=== PATIENT | male | born 1960 | race Caucasian/White ===

== ENCOUNTER 2020-09-08 09:18 | Emergency (ER) | payer OTHER ==
--- OUTSIDE RECORDS SUMMARY | 2020-09-08 09:22 | XMS REPORT | Continuity of Care Document ---
:1960 Author Organization [facility] t Address [address] [place] [address] Care Team Providers Name Role Phone Adamaris Keith MD Primary Care Physician Rohit Watson MD Attending Clinician Gilberto CASH Attending Clinician Unavailable Adamaris Keith MD Attending Clinician Rosa Maria Macias Attending Clinician Unavailable Kristi CASH Attending Clinician Unavailable Aldo BLOOM Attending Clinician Unavailable Mi Landin MD Attending Clinician Vaughn CASH Attending Clinician Unavailable Alayna CAMP, SPaolo Attending Clinician Driss CASH Attending Clinician Unavailable Brayan Jacob MD Attending Clinician Bruna BLOOM Attending Clinician Unavailable Vidhi Landin MD Attending Clinician Jovon López MD Attending Clinician MD Mi LANDIN Attending Clinician Unavailable John CASH Attending Clinician Unavailable Chance BLOOM Attending Clinician Unavailable Rachelle Dalal MD Attending Clinician Anthony Attending Clinician Unavailable Baldev CAMP, Lio Flanagan Attending Clinician [phone] Berta Tobin MD Attending Clinician [phone] Fartun Frances Attending Clinician MD ROHIT WATSON Attending Clinician Unavailable MUSHTAQ Admitting Clinician Unavailable MD Mi LANDIN Admitting Clinician Unavailable RENE Admitting Clinician Unavailable MD ROHIT WATSON Admitting Clinician Unavailable Payers Payer Name Policy Type Policy Effective Date Expiration Date Crystal ce Number NILESH [id number] 2019 [place] [facility]IC[facility] [facility] 00:[place]:00 Method ist GOLD PLUS [id number] /2020-PresentHMO Problems Condition Condition Condition Status Onset Resolution Last Treating Co mments Source Name Details Category Date Date Treatment Clinician Date Arthritis Arthritis Disease Active Overview: Solo of right of right 04-25 Formattin [facility] ankle ankle 00:00: g of this st note might be different from the original. Added automatic ally from request for surgery [id number] Pain, Pain, Disease Active [place] joint, joint, 03-21 Methodi ankle, ankle, 00:00: st right right 00 Hyperlipid Hyperlipid Disease Active [place] emia emia 03-21 Methodi 00:00: st 00 Essential Essential Disease Active Lyndon ston (primary) (primary) 03-21 Meth abelino hypertensi hypertensi 00:00: st on on 00 Anxiety Anxiety Disease Active [place] 03-21 Methodi 00:00: st 00 Chronic Chronic Disease Active [place] pain pain 03-21 Methodi disorder disorder 00:00: st 00 Atrial Atrial Disease Active 2019-02 Overview: [place] flutter flutter 2-04 Formattin Metho di 00:00: g of this st note might be different from the original. Added automatic ally from request for surgery [id number] History of History of Problem Active [facility] fracture fracture [facility] of right of right Memori a ankle ankle l Outpati ent Clinics High High Problem Active [facility] cholestero cholestero Hayde kes - l l [facility] Outpat[facility] ent Clinics Hyperlipid Hyperlipid Problem Active [facility] emia, emia, [facility] - unspecifie unspecifie Me moria d d l hyperlipid hyperlipid Ou tpati emia type emia type ent Clinics Anxiety Anxiety Problem Active [facility] Erectile Erectile Problem Active [facility] dysfunctio dysfunctio Hayde kes - n n Memoria l Outpati ent [facility] Chronic Chronic Problem Active [facility] pain pain [facility] - syndrome syndrome [facility] a [facility] HTN HTN Problem Active [facility] (hypertens (hypertens Hayde kes - ion) ion) [facility] Memory Memory Problem Active [facility] problem problem [facility] - Memoria [facility] Obesity Obesity Problem Active [facility] (BMI (BMI [facility]ukes - 30.0-34.9) 30.0-34.9) Me moria l [facility] ent Clinics Swelling Swelling Diagnosis Active [facility] of right of right [facility] - ankle ankle Memoria joint joint l [facility] Varicose Varicose Problem Active [facility] veins of veins of [facility] - both lower both lower Me moria extremitie extremitie l s, s, Outpati unspecifie unspecifie en t d whether d whether Clin ics complicate complicate d d Depression Depression Problem Active [facility] screening screening Luke s - Memoria [facility] Other Other Diagnosis Active [facility] Pain in Pain in Diagnosis Active [facility] right right [facility] - ankle and ankle and Brandon jayjay joints of joints of l right foot right foot Ou tpati ent Clinics Allergies, Adverse Reactions, Alerts This patient has no known allergies or adverse reactions. Family History Family Member Diagnosis Comments Start Date Stop Date Source Natural father Cancer [facility] thodist Natural mother No Known Problems Lyndon Herrmann Natural sister No Known Problems Lyndon Herrmann Social History Social Habit Start Date Stop Date Quantity Comments Source History of tobacco 2019-11-29 Light tobacco Lyndonmaye ritchie Confucianist use 00:00:00 smoker Cigarettes smoked 2020-04-25 2020-04-25 Edil Confucianist current (pack per 00:00:00 00:00:00 day) - Reported Cigarette 2020-04-25 2020-04-25 Solo Method ist pack-years 00:00:00 00:00:00 Tobacco use and 2020-04-25 2020-04-25 Never used Edil Malave ethodist exposure 00:00:00 00:00:00 Alcohol intake 2020-04-25 2020-04-25 Current drinker [place] [facility] 00:00:00 00:00:00 of alcohol (finding) History SDOH 2020-04-042020-04-04 5 [place] Meth odist Alcohol Frequency 00:00:00 00:00:00 History SDOH 2020-04-04 2020-04-04 3 [place] Meth odist Alcohol Std Drinks 00:00:00 00:00:00 History SDOH 2020-04-04 2020-04-04 5 [place] Meth odist Alcohol Binge 00:00:00 00:00:00 Alcohol Comment 2020-03-10 2020-03-10 6 pack per day [place] [facility] 00:00:00 00:00:00 Sex Ass[birth year] At [birth year] [place] Ananda ethodist 00:00:00 00:00:00 Smoking Status Start Date Stop Date Source Light tobacco smoker 2020-04-25 00:00:00 [place] [facility] Medications Ordered Filled Start Stop Current Ordering Indication Dosage Frequency Signature Comments Components Source Medication Medication Date Date Medication? Clinician (SIG) Name Name potassium Yes TAKE 1 [place] chloride 5-12 TABLET(10 Method i (KLOR-CON) 00:00: MEQ) BY st 10 MEQ CR 00 MOUTH tablet DAILY furosemide Yes TAKE 1 [place] (LASIX) 20 5-12 TABLET(20 Meth abelino mg tablet 00:00: MG) BY st 00 MOUTH DAILY lisinopriL Yes 20mg Q.5D Take 1 [place] (PRINIVIL) 4-19 tablet (20 Met hodi 20 mg 00:00: mg total) st tablet 00 by mouth 2 (two) times a day. metoprolol 2021- Yes 50mg QD Take 1 [place] succinate 4-19 04-19 tablet (50 Met hodi XL (Toprol 00:00: 23:59 mg total) s t XL) 50 mg 00 :00 by mouth 24 hr daily. tablet therapeutic Yes 1{tbl} QD Take 1 [place] multivitami 2-19 tablet by Met hodi n 09:30: mouth st (THERAGRAN) 11 daily. tablet apixaban Yes 5mg Q.5D Take 1 Solo (Eliquis) 5 2-08 tablet (5 Met hodi mg tablet 00:00: mg total) st 00 by mouth 2 (two) times a day. rosuvastati No 20mg QD Take 1 Lyndon ston n (CRESTOR) 2- 02-06 tablet (20 M ethodi 20 mg 00:00: 23:59 mg total) st tablet 00 :00 by mouth daily. furosemide 2020- No TAKE 1 [place] (LASIX) 20 2-07 02-12 TABLET(20 Met hodi mg tablet 00:00: 00:00 MG) BY st 00 :00 MOUTH DAILY potassium 2020- No TAKE 1 [place] chloride 04-04-12 TABLET(10 Metho di (KLOR-CON) 00:00: 00:00 MEQ) BY st 10 MEQ CR 00 :00 MOUTH tablet DAILY lisinopriL No 20mg QD Take 1 [place] (PRINIVIL) 2 04-19 tablet (20 Me thodi 20 mg 00:00: 00:00 mg total) st tablet 00 :00 by mouth daily. furosemide No 20mg QD Take 1 [place] (LASIX) 20 04-04-05 tablet (20 Me thodi mg tablet 00:00: 00:00 mg total) st 00 :00 by mouth daily. potassium 10meq QD Take 1 [place] chloride 04-04-05 tablet (10 Meth abelino (KLOR-CON) 00:00: 00:00 mEq total) st 10 MEQ CR 00 :00 by mouth tablet daily. furosemide No 40mg QD Take 1 [place] (Lasix) 40 03-21- tablet (40 Me thodi mg tablet 00:00: 23:59 mg total) st 00 :00 by mouth daily for 3 days. Hold if swelling gone. Expect increased urination. HYDROcodone 2020- No chronic 1{tbl} Q6H Take 1-2 Solo -acetaminop 1-14 -22 pain tablets by M huber hen ([place]) 00:00: 23:[address] 10-325 mg 00 :00 every 6 per tablet (six) hours for 8 days .chronic pain. Max Daily Amount: 8 tablets aspirin 325 2020- No 325mg QD Take 325 Solo MG tablet 03-06-07 mg by Methodi 16:33: 00:[address] 22 :00 daily. atorvastati 2019-02 No 20mg QD Take 20 mg Solo n (LIPITOR) 04-20-21 by mouth Met hodi 20 mg 16:30: 00:[address] tablet 09 :00 Default OP ins atorvastati 2019-02 No 20mg QD Take 1 Lyndon ston n (LIPITOR) 04-20- tablet (20 M ethodi 20 mg 00:00: 00:00 mg total) st tablet 00 :00 by mouth daily for 180 doses. Default OP ins aspirin 325 2019-02 No 325mg QD Take 1 [place] MG tablet 04-06 tablet Methodi 14:14: 00:00 ([address] 49 :00 total) by mouth daily. apixaban 2019-02 No 5mg Q.5D Take 1 [place] (Eliquis) 5 04-06-25 tablet (5 Me thodi mg tablet 00:00: 00:00 mg total) st 00 :00 by mouth 2 (two) times a day. lisinopriL 2019-02 No 10mg QD Take 1 [place] (PRINIVIL) 04-03 02-05 tablet (10 Me thodi 10 mg 00:00: 00:00 mg total) st tablet 00 :00 by mouth daily. metoprolol 2019-02 No 50mg Q.5D Take 50 mg Solo tartrate 03-1718 by mouth 2 Meth abelino (LOPRESSOR) 14:38: 00:00 (two) st 50 mg 28 :00 times a tablet day. metoprolol 2019-02 No 50mg Q.5D Take 1 [place] tartrate 03-17 04-19 tablet (50 Meth abelino (LOPRESSOR) 00:00: 00:00 mg total) st 50 mg 00 :00 by mouth 2 tablet (two) times a day. Gabapentin Gabapentin Yes Jody [address] 2-05 [place] (take with Luke s - 00:00: gabapentin Memoria 00 800 mg) l Outpati ent Clinics IBU IBU Yes Jody TAKE [address] [facility] [facility] Millender TABLET BY [facility] - MOUTH 3 Memoria TIMES A l DAY (AFTER Outpati MEALS) ent NEEDED FOR Clinics PAIN Gabapentin Gabapentin Yes Jody [address] [facility] [address] Millender (take with Luke s - gabapentin Memoria 100 mg) l [facility] Lisinopril Lisinopril Yes Jody [address] [facility] [address] Millender [facility] Metoprolol Metoprolol Yes Jody [address] Succinate Succinate Millender [facility] atorvastati atorvastati No Jody [address] n n 12-29 [place] in evening Kayla es - 00:00 Memoria :00 l [facility]ics Immunizations Ordered Immunization Filled Immunization Date Status Commen ts Source Name Name CARLY PEREA PF 2020-01-10 [facility] 00:00:00 Confucianist Vital Signs Vital Name Observation Time Observation Value Comments Source Body height 2020-04-18 09:31:00 182.9 cm [place] [facility] Body weight 2020-04-18 09:31:00 115.667 kg [place] [facility] BMI 2020-04-18 09:31:00 34.58 kg/m2 [place] [facility] Heart rate 2020-04-04 14:58:00 92 /min [place] [facility] Oxygen saturation in 2020-04-04 14:58:00 99 /min [place] [facility] Arterial blood by Pulse oximetry Systolic blood 2020-04-04 14:09:00 140 mm[Hg] [place] n Confucianist pressure Diastolic blood 2020-04-04 14:09:00 95 mm[Hg] [place] Confucianist pressure Body temperature 2020-04-04 14:09:00 36.44 Sharmin [place] [facility] Respiratory rate 2020-03-21 12:45:00 16 /min [place] [facility] Procedures Procedure Date / Time Performing Clinician Source Performed US DUPLEX VENOUS LOWER 2020-04-21 10:45:00 Indu Keith on Confucianist EXTREMITY BILATERAL Adamaris COMPREHENSIVE METABOLIC 2020-04-21 09:45:00 Ananda Watson Confucianist PANEL ESTIMATED GFR 2020-04-21 09:45:00 Ananda Watson COMPREHENSIVE METABOLIC 2020-04-04 15:36:00 Ananda Watson Confucianist PANEL B NATRIURETIC PEPTIDE 2020-04-04 15:36:00 Ananda Watson on Confucianist SURGICAL PATHOLOGY REQUEST 2020-03-21 09:36:00 Umesh Landin MA AN ELECTIVE 2020-03-21 09:06:37 Ulises Etienne Me thodist ENDOTRACHEAL AIRWAY OR FL < 1 HOUR 2020-03-21 08:47:45 Umesh Landin ethodist LAMINECTOMY, LUMBAR 2020-03-21 08:20:00 Umesh Landin on Confucianist COVID-19 QUALITATIVE 2020-03-18 15:59:00 Umesh Landin Confucianist RT-PCR COVID-19 QUALITATIVE 2020-03-11 12:02:00 Umesh Landin Confucianist RT-PCR PARTIAL THROMBOPLASTIN 2020-03-11 12:02:00 Kellen Mike TIME (PTT) PROTHROMBIN TIME WITH INR 2020-03-11 12:02:00 Kellen Mike COMPREHENSIVE METABOLIC 2020-03-11 12:02:00 Kellen Mike PANEL CBC WITH PLATELET AND 2020-03-11 12:02:00 Kellen Mike DIFFERENTIAL ESTIMATED GFR 2020-03-11 12:02:00 Kellen Mike ethodist MANUAL DIFFERENTIAL 2020-03-11 12:02:00 Kellen Mikeist CV STRESS TEST NUCLEAR 2020-03-03 11:18:58 Ananda Watson CARDIO NM MYOCARDIAL PERFUSION 2020-03-03 11:18:58 Ananda Watson STRESS REST 1 DAY XR ANKLE 3+ VW RIGHT 2020-02-12 13:41:40 Indu Keitha ECG 12-LEAD 2020-02-06 16:19:31 Phillip López odjane Sigala EP ABLATION FLUTTER 2020-02-06 15:30:00 Phillip López TTE COMPLETE, W CONTRAST, 2020-02-06 11:00:00 Jennie Antunez W DOPPLER ([id number]) TYPE AND SCREEN 2020-02-06 07:30:00 Phillip López Meth odist Jovon BASIC METABOLIC PANEL 2020-02-06 03:20:00 Phillip López Confucianist Jovon ESTIMATED GFR 2020-02-06 03:20:00 Phillip López Meth odist Jovon HC COMPLETE BLD COUNT 2020-02-06 03:00:00 Phillip López Confucianist W/AUTO DIFF Jovon PROTHROMBIN TIME WITH INR 2020-02-06 03:00:00 Phillip López [place] Confucianist Jovon ECG PRE/POST OP 2020-02-06 02:42:28 Phillip López odist Jovon ECHOCARDIOGRAM 2020-02-05 15:22:22 Phillip López odist TRANSESOPHAGEAL W DOPPLER Jovon COLORFLOW ECG PRE/POST OP 2020-02-05 08:16:37 Ananda Watson Met hodist COVID-19 QUALITATIVE 2020-02-01 16:46:00 Ananda Watson Confucianist RT-PCR COMPREHENSIVE METABOLIC 2020-02-01 16:46:00 Ananda Watson Confucianist PANEL PROTHROMBIN TIME WITH INR 2020-02-01 16:46:00 Ananda Watson Confucianist PARTIAL THROMBOPLASTIN 2020-02-01 16:46:00 Ananda Watson Confucianist TIME (PTT) HC COMPLETE BLD COUNT 2020-02-01 16:46:00 Ananda Watson on Confucianist W/AUTO DIFF ESTIMATED GFR 2020-02-01 16:46:00 Ananda Watson Met hodist ECG 12-LEAD 2020-02-01 15:33:50 Ananda Watson Met hodist ECG 12-LEAD 2020-01-10 12:26:58 Indu Keith Meth odist Adamaris CBC WITH PLATELET AND 2020-01-10 12:16:00 Indu Keith Confucianist DIFFERENTIAL Adamaris HEMOGLOBIN A1C 2020-01-10 12:16:00 Indu Keith Meth odist Adamaris COMPREHENSIVE METABOLIC 2020-01-10 12:16:00 Indu Keith Mally oquendo Confucianist PANEL Adamaris LIPID PANEL 2020-01-10 12:16:00 Indu Keith Meth odist Adamaris LDH 2020-01-10 12:16:00 Indu Keith Meth odjane [place] PROTHROMBIN TIME WITH INR 2020-01-10 12:16:00 Indu Keith Confucianist Adamaris MRI LUMBAR SPINE WO 2020-01-02 10:53:14 Umesh Landin on Confucianist CONTRAST MRI THORACIC SPINE WO 2020-01-02 10:41:21 Umesh Landin Confucianist CONTRAST MRI CERVICAL SPINE WO 2020-01-02 10:29:42 Umesh Landin Confucianist CONTRAST Plan of Care Planned Activity Planned Date Details Comments Source Future Scheduled Test 2020-09-28 INFLUENZA VACCINE [facility] Confucianist 00:00:00 [code = INFLUENZA VACCINE] Future Scheduled Test [facility] S[facility]ENING [code = COLONOSCOPY SCREENING] Future Scheduled Test 2011 SHINGLES VACCINES [facility]ucianist 00:00:00 (#1) [code = SHINGLES VACCINES (#1)] Future Scheduled Test 1979 Hepatitis C [place] n Confucianist 00:00:00 screening (procedure) [code = 190609263] Future Scheduled Test 1973 COVID-19 VACCINE (1) [place] [facility] 00:00:00 [code = COVID-19 VACCINE (1)] Future Appointment 2020-09-23 Opal Boyd MD on Confucianist 07:30:[address] [place] [address]; [address] [address] Future Appointment 2020-09-23 Opal Boyd MD on Confucianist 07:30:[address] [place] [address]; [place] [id number] Encounters Start End Encounter Admission Attending Care Care Encounter Source Date/Time Date/Time Type Type Clinicians Facility Department ID 2020-07-02 2020-07-02 Outpatient Ananda WATSON [facility] [id number] [place] 00:00:00 00:00:[address] 2020-04-21 2020-04-21 Outpatient Ananda WATSON [facility] [id number] [place] 00:00:00 00:00:[address] 2020-04-21 2020-04-21 Outpatient YOLI, [facility] [id number] [place] 00:00:00 00:00:00 INDU [address] 2020-04-18 2020-04-18 Outpatient Ananda WATSON [facility] [id number] [place] 00:00:00 00:00:[address] 2020-04-04 2020-04-04 Outpatient Ananda WATSON [facility] [id number] [place] 00:00:00 00:00:[address] 2020-04-04 2020-04-04 Outpatient YLOI, [facility] [id number] [place] 00:00:00 00:00:00 INDU [address] 2020-04-04 2020-04-04 Outpatient Ananda WATSON [facility] [id number] [place] 00:00:00 00:00:[address] 2020-04-03 2020-04-03 Outpatient MUSHTAQ, [facility] [id number] [place] 00:00:00 00:00:00 UMESH [address] 2020-04-02 2020-04-02 Outpatient RANDALO, [facility] [id number] [place] 00:00:00 00:00:00 EDELMIRA [address] 2020-03-21 2020-03-21 Outpatient NANCIER, [facility] [id number] [place] 00:00:00 00:00:00 UMESH [address] 2020-03-11 2020-03-19 Outpatient SCHURMANN, [facility] [id number] [place] 00:00:00 00:00:00 PHILLIP [address] 2020-03-18 2020-03-18 Outpatient WEINER, [facility] [id number] [place] 00:00:00 00:00:00 UMESH [address] 2020-03-11 2020-03-11 Outpatient WEINER, [facility] [id number] [place] 00:00:00 00:00:00 UMESH [address] 2020-03-07 2020-03-07 Outpatient Ananda WATSON [facility] [id number] [place] 00:00:00 00:00:[address] 2020-03-03 2020-03-03 Outpatient Ananda WATSON [facility] [id number] [place] 00:00:00 00:00:[address] 2020-02-12 2020-02-12 Outpatient YOLI, [facility] [id number] [place] 00:00:00 00:00:00 INDU [address] 2020-02-08 2020-02-08 Outpatient YOLI, [facility] [id number] [place] 00:00:00 00:00:00 INDU [address] 2020-02-05 2020-02-06 Outpatient SCHADALGISA, [facility] [id number] [place] 00:00:00 00:00:00 PHILLIP [address] 2020-02-01 2020-02-01 Outpatient YOLI, [facility] [id number] [place] 00:00:00 00:00:00 INDU [address] 2020-02-01 2020-02-01 Outpatient Ananda WATSON [facility] [id number] [place] 00:00:00 00:00:[address] 2020-01-10 2020-01-10 Outpatient YOLI, [facility] [id number] [place] 00:00:00 00:00:00 INDU [address] 2020-01-08 2020-01-08 Outpatient WEINER, [facility] [id number] [place] 00:00:00 00:00:00 UMESH [address] 2020-01-02 2020-01-02 Outpatient WEINER, [facility] [id number] [place] 00:00:00 00:00:00 UMESH [address] 2020-01-02 2020-01-02 Outpatient WEINER, [facility] [id number] [place] 00:00:00 00:00:00 UMESH [address] 2020-01-02 2020-01-02 Outpatient WEINER, [facility] [id number] [place] 00:00:00 00:00:00 UMESH [address] 2019-12-11 2019-12-11 Outpatient WEINER, [facility] [id number] [place] 00:00:00 00:00:00 UMESH [address] 2019-09-25 2019-09-25 [facility] [id number] 14:24:00 14:24:00 [facility] 2019-09-14 2019-09-14 [facility] [id number] 16:40:00 16:40:00 [facility] 2019-07-05 2019-07-05 [facility] [id number] 09:40:00 09:40:00 [facility] 2019-06-30 2019-06-30 Emergency [facility] [id number] 10:46:40 11:09:00 [place] [id number] [place] [id number] [place] [id number] 2019-05-24 2019-05-24 [facility] [id number] 14:19:00 14:19:00 [facility] 2019-05-21 2019-05-21 [facility] [id number] 16:33:00 16:33:00 [facility] 2019-04-03 2019-04-03 [facility] [id number] 15:15:00 15:15:00 [facility] Results Test Test Test Results Result Source Description Time Comments Comments Us duplex 2020-03- Interface, Radiology [place] venous lower 22 Results In - 04/21/2020 Confucianist extremity 17:04:00 5:06 PM CST Vascular Ultrasound Laboratory Lower Extremity Venous Report [address] [address], [place] [address] Pat.Name: REBECCA JOHNS Pat.ID: [id number] St.Date: 04/21/2020 Refer.MD: INDU KEITH MD Exam Time: 10:17:00 AM Study Type:LE Venous Age: 13 1960,60Y Sex: MALE Sonogrphr: Akiko Daley RVT Pat. Stat.:Outpatient Room: [facility] 16 Tape Vol: RF, CPT - 4: 18771 Echo Event ID:[id number] Order ID: [id number] Reason for Study:Bilateral leg swelling.Procedures: Colorflow, Grayscale/2D, Power Doppler ImagingRace: C SUMMARY:------ -----Deep Veins Superficial Veins* Normal Reflux Criteria: < 1 second * Normal RefluxCriteria: < 0.5 seconds * Abnormal Reflux Criteria: > or equal to 1 second * Abnormal RefluxCriteria: > or equal to 0.5 seconds DUPLEX SCAN OBSERVATIONS Deep Veins Superficial Veins Right Left Right Left GSV (prox) Normal NormalCFV Normal Normal (above knee)Femoral Normal Normal GSV (dist) Normal NormalProfunda Normal Normal (below knee)Popliteal Normal NormalPT (prox) Normal Normal SSV Normal NormalPT (dist) Normal Normal Peroneal Normal Normal Gastrocs Normal NormalRIGHT: There is normal compressibility with no evidence of echogenic materialnoted within the lumen of the visualized veins.Colorflow and Dopplersignals are normal. LEFT:There is normal compressibility with no evidence of echogenicmaterial noted within the lumen of the visualized veins. Colorflow andDoppler signals are normal. PRELIMINARY FINDINGS:1. Normal venous duplex exam of the visualized veins. PHYSICIAN INTERPRETATION: Venous examination of the both lower extremities demonstrated noevidence of venous thrombosis in the visualized veins. Normalcompressibility and augmentation of all veins visualized. FIN DINGS: Signed 04/21/2020 05:04 Saranya Koch MD, RPVI B natriuretic peptide 2020-04-05 17:47:00 Test Item Value Reference Range Interpretation Comme nts BNP (test code = 41 pg/mL <100 BNP levels increase with age 86104-1) in the generalp opulation with the highest martin ues seen inindividuals g reater than 75 years of age.Re ference: J. Am. Michelle. Cardiol. 2002; 40:976-982. RAC (test code = RAC) Performing Organization Information: Site ID: [facility] Name: [facility] Address: [address] [place] [id number] Director: Cali BarrosistOR [place] < 1 [id number] 11:04:35Hm Interface, Radiology Results Incoming - 04/02/2020 11:07 AM CSTFormatting of this note might be di fferent from the original.EXAMINATION: OR [place] < 1 HOURC-arm fluoroscopy was requested in OR. Location: [facility]19 - OR 10 Procedure: DECOMPRESSION L3-5 Start Time: 0800 End Time: 0845 Fluoro Time: 1second Dose (mGy): 0.872mGy Tech(s): ACIMPRESSION:Intraoperative fluoroscopic images. Radiologist was not present during the examination.Separate operative report will be issued by the physician performing the procedure.[id number] [id number] 09:33:41 Test Item Value Reference Range Interpretation Comments Case number (test code = [id number]) Surgical pathology See link below for report (test code = PDF Lab Report [id number]) Result status (test code This is Final Report = [id number]) for [id number] [place] MzctlddhzDpufnv7164-68-83 09:06:37Ulises Etienne CRNA 03/21/2020 9:10 AMAirway Date/Time: 03/21/2020 8:27 AM Location: OR Performed by: JOE/Mack/JOE/AA: Ulises Etienne CRNAAuthorized by: London Jacob MD Urgency: ElectiveDifficult Airway: No Preoxygenated with 100% O2: Yes C-spine Precautions Maintained Throughout: Yes Mask Ventilation: Not attemptedFinal Airway Type: Endotracheal airwayFinal Endotracheal Airway: ETTCuffed: Yes Technique Used: Video laryngoscopyDevices/Methods Used in Placement: Intubating styletInsertion Site: OralBlade Type: MacintoshLaryngoscope Blade/Videolaryngoscope Blade Size: 4ETT Size (mm): 8.0Cuff at minimum occlusion pressure: Yes Measured from: LipsETT to Lips (cm): 24Placement Verified by: CO2 detection Laryngoscopic view: Grade I - full view of glottisRapid Sequence Induction (RSI): Yes Modified RSI: No Number of Attempts at Approach: 1 CARRIE MATHEWS ON [facility] Confucianist COVID-19 qualitative [id number] 01:29:52 Test Item Value Reference Range Interpretation Comments Interpretation (test Negative results do code = 9901863) not preclude 2019-nCoV infection and should not be used as the sole basis for treatment or other patient management decisions. Negative results must be combined with clinical observations, patient history, and epidemiological information. COVID-19 qualitative Not-Detected Not-Detected RT-PCR result (test code = 37817-6) COVID-19 qualitative See link below for C ase Number: RT-PCR (test code = PDF Lab Report [id number]) Edil StreeterRxgwkwhahDJQZ-FvR-0 (COVID-19) RNA [Presence] in Respiratory specimen by EMERSON with probe [id number] 01:29:19 Test Item Value Reference Range Interpretation Comments SARS-CoV-2 (COVID-19) RNA Not detected Not-Detected [Presence] in Respiratory specimen by EMERSON with probe detection (test code = 94901-6) SARS-CoV-2 (COVID-19) RNA [Presence] in Respiratory specimen by EMERSON with probe [id number] 22:23:20 Test Item Value Reference Range Interpretation Comments SARS-CoV-2 (COVID-19) RNA Not detected Not-Detected [Presence] in Respiratory specimen by EMERSON with probe detection (test code = 00129-5) XR Ankle 3+ Vw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
[2020-09-08] MEDS ORDERED: METOPROLOL TAR 50 MG TAB ONE (10:12)
[2020-09-08] MEDS ORDERED: ONDANSETRON 4 MG/2 ML VIAL ONE (10:12)
[2020-09-08] MEDS ORDERED: NA CHLORIDE 0.9% 1,000 ML ONE (10:12)
[2020-09-08] MEDS ORDERED: lisinopriL 20 MG TAB ONE (10:12)
[2020-09-08 10:15] LABS: Absolute Lymphocytes (CBC) 0.6 K/uL (0.7-4.9); Basophils % 0.7 % (0-1.3); Hematocrit 43.3 % (39.6-49.0); Lymphocytes % 7.2 % (15.3-44.8); MPV 7.5 fL (7.6-11.3); RBC Red Blood Cell Count 4.44 M/uL (4.33-5.43)
[2020-09-08 10:36] LABS: ALT/SGPT 55 U/L (12-78); AST/SGOT 75 U/L (15-37); Albumin 4.2 g/dL (3.4-5.0); Alkaline Phosphatase 89 U/L (45-117); BUN Blood Urea Nitrogen 9 mg/dL (7-18); Bicarbonate 32 mmol/L (21-32); Bilirubin Direct 0.5 mg/dL (0-0.2); Bilirubin Total 1.6 mg/dL (0.2-1.0); Glucose Level 132 mg/dL (74-106); Lipase 164 U/L (73-393); Protein, Total 8.7 g/dL (6.4-8.2); Sodium Level 138 mmol/L (136-145); Troponin (Emerg Dept Use Only) < 0.02 ng/mL (0.0-0.045)
--- NOTE | 2020-09-08 10:37 | RAD REPORT ---
EXAM DESCRIPTION: CT - Head Brain Wo Cont - 09/08/2020 10:12 am CLINICAL HISTORY: vomiting Headache, drowsiness COMPARISON: HEAD BRAIN W O CONTRAST dated 07/17/2014; HEAD BRAIN W O CONTRAST dated 07/16/2014 TECHNIQUE: All CT scans are performed using dose optimization technique as appropriate and may inclu de automated exposure control or mA/KV adjustment according to patient size. FINDINGS: No intracranial hemorrhage, hydrocephalus or extra-axial fluid collection.Mild generalized brain atrophy is present with mild periventricular and deep white matter chronic microvascular ische lore changes.No areas of brain edema or evidence of midline shift. Mild polypoid mucosal thickening in both maxillary antra. The paranasal sinuses and mastoids are othe rwise clear. The calvarium is intact. IMPRESSION: No acute intracranial abnormality.
[2020-09-08] MEDS ORDERED: DIAZEPAM 10 MG/2 ML INJ SYRINGE ONE ×2 (10:46→13:16)
--- NOTE | 2020-09-08 10:46 | RAD REPORT ---
EXAM DESCRIPTION: CTAbdomen Pelvis W Contrast - 09/08/2020 10:15 am CLINICAL HISTORY: Abdominal pain. vomiting COMPARISON: No comparisons TECHNIQUE: Biphasic CT imaging of the abdomen and pelvis was performed with 100 ml non-ionic IV cont rast. All CT scans are performed using dose optimization technique as appropriate and may include automated exposure control or mA/KV adjustment according to patient size. FINDINGS: The lung bases are clear. Mild diffuse fatty liver is present. No focal mass or biliary dilatation is seen. The spleen, left ad renal gland, pancreas are within normal limits. 35 mm cyst is present cortex of left kidney. No renal mass or hydronephrosis seen. 16 mm right adrenal mass is present, statistically most likely to repre sent an adenoma. No bowel obstruction, free air, free fluid or abscess. The appendix is normal. Moderate rectosigmoid fecal retention. No evidence of significant lymphadenopathy. Small fat containing right inguinal her bola. Mild lumbosacral degenerative changes are present. IMPRESSION: No acute intra-abdominal or pelvic finding. Prominent diffuse fatty liver.
[2020-09-08] MEDS ORDERED: KCL 20 MEQ/100 mL IVPB 20 MEQ/100 ML BAG IV ONE (11:01)
--- NOTE | 2020-09-08 12:51 | EDPHYS ---
Physician Documentation [facility] Name: Juaquin Steele Age: 60 yrs Sex: Male : 1960 Arrival Date: 09/08/2020 Time: 09:24 Bed 7 Private MD: ED Physician Praneeth Plata HPI: 09/08 10:43 This 60 yrs old Male presents to ER via Wheelchair with complaints of rn Vomiting. 10:43 The patient presents to the emergency department with nausea, vomiting. Onset: The rn symptoms/episode began/occurred last night. Possible causes: unknown. The symptoms are aggravated by nothing. The symptoms are alleviated by nothing. Associated signs and symptoms: Pertinent positives: nausea, vomiting, Pertinent negatives: fever, GI bleeding. Severity of symptoms: At their worst the symptoms were moderate in the emergency department the symptoms are unchanged. The patient has not experienced similar symptoms in the past. The patient has not recently seen a physician. Reports nausea/vomiting, headache, began last night. Reports daily drinker and last drink yesterday because of the vomiting. Also reports ran out of BP medication lisinopril and metoprolol 10 days ago. No focal weakness or new neurological complaint. No trauma. No vision changes. . Historical: - Allergies: 09:51 No Known Allergies; ss - Home Meds: 09:51 lisinopril 20 mg Oral tab 1 tab once daily [Active]; metoprolol tartrate 50 mg Oral tab ss 1 tab 2 times per day [Active]; - PMHx: 09:51 Hypertensive disorder; Alcoholism; ss - PSHx: 09:51 back sx; ss - Immunization history:: Adult Immunizations up to date. - Social history:: Smoking status: Patient reports the use of cigarette tobacco products, denies chronic smoking, but will smoke occasionally. - Family history:: not pertinent. - Hospitalizations: : No recent hospitalization is reported. ROS: 10:43 Constitutional: Negative for fever, chills, and weight loss, Eyes: Negative for injury, rn pain, redness, and discharge, Neck: Negative for injury, pain, and swelling, Cardiovascular: Negative for chest pain, palpitations, and edema, Respiratory: Negative for shortness of breath, cough, wheezing, and pleuritic chest pain, Abdomen/GI: Negative for diarrhea, and constipation, Back: + chronic back pain MS/Extremity: Negative for injury and deformity, Skin: Negative for injury, rash, and discoloration, Neuro: Negative for weakness, numbness, tingling, and seizure. 10:43 All other systems are negative. Exam: 10:43 Constitutional: This is a well developed, well nourished patient who is awake, alert, rn and in no acute distress. Head/Face: Normocephalic, atraumatic. Eyes: Pupils equal round and reactive to light, extra-ocular motions intact. Periorbital areas with no swelling, redness, or edema. ENT: + dry MM Cardiovascular: Tachycardic, regular Respiratory: No increased work of breathing, no retractions or nasal flaring. Abdomen/GI: soft, no focal tenderness, no masses Skin: Warm, dry MS/ Extremity: Pulses equal, no cyanosis. Neuro: Awake and alert, GCS 15, oriented to person, place, time, and situation. Cranial nerves II-XII grossly intact. Vital Signs: 09:47 BP 217 / 106; Pulse 104; Resp 18; Temp 97.8(TE); Pulse Ox 99% on R/A; Weight 106.59 kg; ss Height 6 ft. 0 in. (182.88 cm); Pain 0/10; 10:15 BP 202 / 102; Pulse 102 MON; Resp 16; Pulse Ox 97% on R/A; sv 10:49 BP 194 / 115; Pulse 95; Resp 15; Pulse Ox 98% ; sv 11:49 BP 211 / 146; Pulse 79; Resp 15; Pulse Ox 99% ; sv 12:30 BP 170 / 90; Pulse 85; Resp 19; Pulse Ox 98% ; sv 09:47 Body Mass Index 31.87 (106.59 kg, 182.88 cm) ss 10:15 Sinus tachycardia sv MDM: 09:36 Patient medically screened. rn 10:22 ED course: Pt daily drinker, ordered valium given last drink yesterday and could have rn some component of withdrawal explaining HTN and tachycardia in addition to vomiting illness and out of his BP meds for 1 week.. 12:45 Differential diagnosis: gastritis, cholecystitis, pancreatitis, appendicitis, rn diverticulitis, viral gastroenteritis, gastroenteritis, viral illness, ETOH withdrawal. Data reviewed: vital signs, nurses notes, lab test result(s), EKG, radiologic studies, and as a result, I will discharge patient. Counseling: I had a detailed discussion with the patient and/or guardian regarding: the historical points, exam findings, and any diagnostic results supporting the discharge/admit diagnosis, lab results, radiology results, the need for outpatient follow up, to return to the emergency department if symptoms worsen or persist or if there are any questions or concerns that arise at home. Response to treatment: the patient's symptoms have markedly improved after treatment, and as a result, I will discharge patient. Special discussion: I discussed with the patient/guardian in detail that at this point there is no indication for admission to the hospital. It is understood, however, that if the symptoms persist or worsen the patient needs to return immediately for re-evaluation. ED course: Pt markedly improved, labs and ct abdomen no acute findings, afebrile, most likely viral illness vs mild pancreatitis and chronic alcoholism with mild ETOH withdrawal because hasn't been able to keep anything down since yesterday. No vomiting here, feels much better, will dc home with prn twila and pcp f/u, recommend ETOH taper and/or detox facility. . 09/08 09:46 Order name: Basic Metabolic Panel; Complete Time: 10:38 rn 09/08 09:46 Order name: CBC with Diff; Complete Time: 10:38 rn 09/08 09:46 Order name: Hepatic Function; Complete Time: 10:38 rn 09/08 09:46 Order name: Lipase; Complete Time: 10:38 rn 09/08 09:46 Order name: Troponin (emerg Dept Use Only); Complete Time: 10:38 rn 09/08 11:14 Order name: CREATININE WHOLE BLOOD; Complete Time: 11:58 EDWA 09/08 09:46 Order name: CT Abd/Pelvis - IV Contrast Only; Complete Time: 10:51 rn 09/08 09:46 Order name: CT Head Brain wo Cont; Complete Time: 10:42 rn 09/08 09:46 Order name: IV Saline Lock; Complete Time: 10:03 rn 09/08 09:46 Order name: Labs collected and sent; Complete Time: 10:03 rn 09/08 09:46 Order name: EKG; Complete Time: 09:47 rn 09/08 09:46 Order name: EKG - Nurse/Tech; Complete Time: 10:03 rn Administered Medications: 10:02 Drug: NS 0.9% 1000 ml Route: IV; Rate: 1000 ml; Site: right antecubital; sv 13:25 Follow up: Response: No adverse reaction; IV Status: Completed infusion; IV Intake: sv 1000ml 10:02 Drug: Zofran (Ondansetron) 4 mg Route: IVP; Site: right antecubital; sv 10:28 Follow up: Response: No adverse reaction; Marked relief of symptoms sv 10:28 Drug: Lisinopril 20 mg Route: PO; sv 10:45 Follow up: Response: No adverse reaction sv 10:28 Drug: Metoprolol TARTRATE 50 mg Route: PO; sv 10:45 Follow up: Response: No adverse reaction sv 10:28 Drug: Valium (diazepam) 5 mg Route: IVP; Site: right antecubital; sv 10:45 Follow up: Response: No adverse reaction sv 10:45 Drug: Potassium Chloride 10 mEq Route: IV; Rate: calculated rate; Site: right sv antecubital; 11:45 Follow up: Response: No adverse reaction; IV Status: Completed infusion; IV Intake: 50mlsv 12:59 Drug: Valium (diazepam) 5 mg Route: IVP; Site: right antecubital; sv 13:25 Follow up: Response: No adverse reaction sv 12:59 Drug: cloNIDine 0.2 mg Route: PO; sv 13:25 Follow up: Response: No adverse reaction sv Disposition Summary: 09/08/20 12:50 Discharge Ordered Location: Home rn Problem: new rn Symptoms: have improved rn Condition: Stable rn Diagnosis - Vomiting rn - Alcohol dependence with withdrawal - mild, secondary to vomiting rn - Dehydration rn - Essential (primary) hypertension rn Followup: rn - With: Private Physician - When: As needed - Reason: Recheck today's complaints, Re-evaluation by your physician Discharge Instructions: - Discharge Summary Sheet rn - Alcohol Withdrawal Syndrome rn - Dehydration, Adult rn - Hypertension, Adult rn - Nausea and Vomiting, Adult rn Forms: - Medication Reconciliation Form rn - Thank You Letter rn - Antibiotic corner block cutter - Prescription Opioid Use rn Prescriptions: - ondansetron 4 mg Oral tablet,disintegrating - take 1 tablet by ORAL route every 8 hours As needed; 20 tablet; Refills: 0, rn Product Selection Permitted - Lisinopril 20 mg Oral Tablet - take 1 tablet by ORAL route once daily; 60 tablet; Refills: 0, Product rn Selection Permitted - Metoprolol Tartrate 50 mg Oral Tablet - take 1 tablet by ORAL route 2 times per day take with meal; 120 tablet; rn Refills: 0, Product Selection Permitted Signatures: Dispatcher [employer] Araceli Anderson, RN RN Praneeth Schafer MD MD rn Smirch, Shelby, RN RN ss
--- NOTE | 2020-09-08 12:51 | ER ---
Nurse's Notes [facility] Name: Juaquin Steele Age: 60 yrs Sex: Male : 1960 Arrival Date: 09/08/2020 Time: 09:24 Bed 7 Private MD: Diagnosis: Vomiting;Alcohol dependence with withdrawal-mild, secondary to vomiting;Dehydration;Essential (primary) hypertension Presentation: 09/08 09:47 Chief complaint: Patient states: N/V that began last night. Denies pain. Coronavirus ss screen: Client denies travel out of the [place] in the last 14 days. Ebola Screen: Patient denies exposure to infectious person. Patient denies travel to an Ebola-affected area in the 21 days before illness onset. Initial Sepsis Screen: Does the patient meet any 2 criteria? No. Patient's initial sepsis screen is negative. Does the patient have a suspected source of infection? No. Patient's initial sepsis screen is negative. Risk Assessment: Do you want to hurt yourself or someone else? Patient reports no desire to harm self or others. Note Pt reports he has been out of his BP medications for about a week. Onset of symptoms was September 07, 2020. 09:47 Method Of Arrival: Wheelchair ss 09:47 Acuity: PANDA 2 ss Historical: - Allergies: 09:51 No Known Allergies; ss - Home Meds: 09:51 lisinopril 20 mg Oral tab 1 tab once daily [Active]; metoprolol tartrate 50 mg Oral tab ss 1 tab 2 times per day [Active]; - PMHx: 09:51 Hypertensive disorder; Alcoholism; ss - PSHx: 09:51 back sx; ss - Immunization history:: Adult Immunizations up to date. - Social history:: Smoking status: Patient reports the use of cigarette tobacco products, denies chronic smoking, but will smoke occasionally. - Family history:: not pertinent. - Hospitalizations: : No recent hospitalization is reported. Screenin:44 Abuse screen: Denies threats or abuse. Denies injuries from another. Nutritional sv screening: No deficits noted. Tuberculosis screening: No symptoms or risk factors identified. Fall Risk None identified. Assessment: 10:28 Reassessment: Patient appears in no apparent distress at this time. No changes from sv previously documented assessment. Patient and/or family updated on plan of care and expected duration. Pain level reassessed. Patient is alert, oriented x 3, equal unlabored respirations, skin warm/dry/pink. 10:45 Reassessment: Patient appears in no apparent distress at this time. No changes from sv previously documented assessment. Patient and/or family updated on plan of care and expected duration. Pain level reassessed. Patient is alert, oriented x 3, equal unlabored respirations, skin warm/dry/pink. 12:59 Reassessment: Patient appears in no apparent distress at this time. Patient and/or sv family updated on plan of care and expected duration. Pain level reassessed. Patient is alert, oriented x 3, equal unlabored respirations, skin warm/dry/pink. 13:24 Reassessment: Patient appears in no apparent distress at this time. Patient and/or sv family updated on plan of care and expected duration. Pain level reassessed. Patient is alert, oriented x 3, equal unlabored respirations, skin warm/dry/pink. Pt waiting for his ride to take him home. Vital Signs: 09:47 BP 217 / 106; Pulse 104; Resp 18; Temp 97.8(TE); Pulse Ox 99% on R/A; Weight 106.59 kg; ss Height 6 ft. 0 in. (182.88 cm); Pain 0/10; 10:15 BP 202 / 102; Pulse 102 MON; Resp 16; Pulse Ox 97% on R/A; sv 10:49 BP 194 / 115; Pulse 95; Resp 15; Pulse Ox 98% ; sv 11:49 BP 211 / 146; Pulse 79; Resp 15; Pulse Ox 99% ; sv 12:30 BP 170 / 90; Pulse 85; Resp 19; Pulse Ox 98% ; sv 09:47 Body Mass Index 31.87 (106.59 kg, 182.88 cm) ss 10:15 Sinus tachycardia sv ED Course: 09:24 Patient arrived in ED. rg4 09:36 Praneeth Plata MD is Attending Physician. rn 09:43 Araceli Emery, WOLF is Primary Nurse. sv 09:44 ED physician to see patient. sv 09:44 Arm band placed on Patient placed in an exam room, on a stretcher. sv 09:44 Patient has correct armband on for positive identification. Bed in low position. Call sv light in reach. Pulse ox on. NIBP on. Door closed. Head of bed elevated. 09:49 Triage completed. ss 10:00 Inserted saline lock: 20 gauge in right antecubital area, using aseptic technique. sv Blood collected. Flushed right antecubital with 5 ml normal saline. 10:12 CT Head Brain wo Cont In Process Unspecified. EDMS 10:15 CT Abd/Pelvis - IV Contrast Only In Process Unspecified. EDMS 10:18 Awaiting lab results, Awaiting radiology results. sv 10:51 Initial lab(s) drawn, by ED staff, sent to lab. EKG done, by ED staff, reviewed by mhEly Plata MD. 13:24 No provider procedures requiring assistance completed. IV discontinued, intact, sv bleeding controlled, No redness/swelling at site. Pressure dressing applied. Administered Medications: 10:02 Drug: NS 0.9% 1000 ml Route: IV; Rate: 1000 ml; Site: right antecubital; sv 13:25 Follow up: Response: No adverse reaction; IV Status: Completed infusion; IV Intake: sv 1000ml 10:02 Drug: Zofran (Ondansetron) 4 mg Route: IVP; Site: right antecubital; sv 10:28 Follow up: Response: No adverse reaction; Marked relief of symptoms sv 10:28 Drug: Lisinopril 20 mg Route: PO; sv 10:45 Follow up: Response: No adverse reaction sv 10:28 Drug: Metoprolol TARTRATE 50 mg Route: PO; sv 10:45 Follow up: Response: No adverse reaction sv 10:28 Drug: Valium (diazepam) 5 mg Route: IVP; Site: right antecubital; sv 10:45 Follow up: Response: No adverse reaction sv 10:45 Drug: Potassium Chloride 10 mEq Route: IV; Rate: calculated rate; Site: right sv antecubital; 11:45 Follow up: Response: No adverse reaction; IV Status: Completed infusion; IV Intake: 50mlsv 12:59 Drug: Valium (diazepam) 5 mg Route: IVP; Site: right antecubital; sv 13:25 Follow up: Response: No adverse reaction sv 12:59 Drug: cloNIDine 0.2 mg Route: PO; sv 13:25 Follow up: Response: No adverse reaction sv Intake: 11:45 IV: 50ml; Total: 50ml. sv 13:25 IV: 1000ml; Total: 1050ml. sv Outcome: 12:50 Discharge ordered by . rn 13:24 Discharged to home via wheelchair, his own wheelchair sv 13:24 Condition: stable 13:24 Discharge instructions given to patient, Instructed on discharge instructions, follow up and referral plans. medication usage, Demonstrated understanding of instructions, follow-up care, medications, Prescriptions given X 3. 13:47 Patient left the ED. sv Signatures: Dispatcher [employer] Araceli Anderson RN RN sv Nieto, Roman, MD MD rn Smirch, Shelby, RN RN ss Garcia, Rubi [facility] Alida Rivero [facility]
[2020-09-08] MEDS ORDERED: cloNIDine HCL 0.1 MG TAB ONE (13:16)
[2020-09-08 13:54] VITALS: TEMP 97.8
[2020-09-08 14:00] VITALS: BP 170/90; O2SAT 98
--- NOTE | 2020-09-08 16:05 | EKG ---
Test Date: 2020-09-08 Test Time: 10:00:16 Bibliographic Services Specialist: BLANCO MEASUREMENT RESULTS: Intervals: Rate: 99 OK: 202 QRSD: 92 QT: 322 QTc: 413 [place]: P: 46 OK: 202 QRS: 43 T: 29 INTERPRETIVE STATEMENTS: Normal sinus rhythm Possible Left atrial enlargement Nonspecific T wave abnormality Abnormal ECG Compared to ECG 07/17/2014 20:45:49 T-wave abnormality now present Electronically Signed On 09-08-20 16:03:43 CDT by Rey Vazquez
== END 2020-09-08 13:47 | disposition home or self-care (01) ==
LOC: ER 09:18
DX: F10.239 Alcohol dependence with withdrawal, unspecified (principal); E86.0 Dehydration; I10 Essential (primary) hypertension
CPT/HCPCS: 96365; 96361; 93005; 85025; 80048; 36415; 82565; 80076; 84484; 83690; 70450; 74177; 96375; 99284; Q9967; J3480; J3360 ×2; J7030; J2405

== ENCOUNTER 2020-11-27 10:13 | Emergency (ER) | payer OTHER ==
--- NOTE | 2020-11-27 10:50 | ER ---
[facility] Name: Juaquin Steele Age: 60 yrs Sex: Male : 1960 Arrival Date: 11/27/2020 Time: 10:14 Bed 17 Private MD: Diagnosis: Medication Refill Presentation: 11/27 10:32 Chief complaint: Patient states: "this morning around 0700 my BP was 180/120 and I took vg1 2 tablets of my Lisinopril 20 mg each because I dont have Metoprolol any more". Pt denies CP. Coronavirus screen: Vaccine status: Patient reports receiving the 2nd dose of the covid vaccine. Client denies travel out of the [place] in the last 14 days. Ebola Screen: Patient negative for fever greater than or equal to 101.5 degrees Fahrenheit, and additional compatible Ebola Virus Disease symptoms. Initial Sepsis Screen: Does the patient meet any 2 criteria? No. Patient's initial sepsis screen is negative. Does the patient have a suspected source of infection? No. Patient's initial sepsis screen is negative. Risk Assessment: Do you want to hurt yourself or someone else? Patient reports no desire to harm self or others. Onset of symptoms was November 27, 2020. 10:32 Method Of Arrival: Ambulatory vg1 10:32 Acuity: PANDA 3 vg1 Triage Assessment: 10:35 General: Appears in no apparent distress. comfortable, Behavior is calm, cooperative. vg1 Pain: Denies pain. Historical: - Allergies: 10:35 No Known Allergies; vg1 - Home Meds: 10:35 lisinopril 20 mg Oral tab 1 tab once daily [Active]; metoprolol tartrate 50 mg Oral tab vg1 1 tab 2 times per day [Active]; - PMHx: 10:35 Alcoholism; Hypertensive disorder; vg1 - PSHx: 10:35 back sx; vg1 - Immunization history:: Adult Immunizations up to date, Client reports receiving the 2nd dose of the Covid vaccine. - Social history:: Smoking status: Patient reports the use of cigarette tobacco products, denies chronic smoking, but will smoke occasionally. Screenin:10 Abuse screen: Denies threats or abuse. Denies injuries from another. Nutritional es2 screening: No deficits noted. Tuberculosis screening: No symptoms or risk factors identified. Fall Risk Gait- Weak (10 pts.). Assessment: 11:08 Reassessment: Patient is alert, oriented x 3, equal unlabored respirations, skin es2 warm/dry/pink. Patient denies pain at this time. General: Appears well developed, well nourished, Behavior is calm, cooperative, appropriate for age. Pain: Denies pain. Neuro: Level of Consciousness is awake, alert, obeys commands, Oriented to person, place, time, situation, Appropriate for age Speech is normal. Respiratory: Airway is patent Respiratory effort is even, Respiratory pattern is regular. GI: No signs and/or symptoms were reported involving the gastrointestinal system. : No signs and/or symptoms were reported regarding the genitourinary system. EENT: No signs and/or symptoms were reported regarding the EENT system. Derm: No signs and/or symptoms reported regarding the dermatologic system. Vital Signs: 10:32 BP 135 / 92; Pulse 120; Resp 18; Temp 97.5; Pulse Ox 100% ; Weight 108.86 kg; Height 6 vg1 ft. 0 in. (182.88 cm); Pain 0/10; 10:32 Body Mass Index 32.55 (108.86 kg, 182.88 cm) vg1 ED Course: 10:14 Patient arrived in ED. rg4 10:35 Triage completed. vg1 10:35 Arm band placed on. vg1 10:40 Jorge Shannon PA is PHCP. [facility] 10:40 Praneeth Plata MD is Attending Physician. [facility] 10:52 Maegan Curran RN is Primary Nurse. es2 11:09 Patient has correct armband on for positive identification. Call light in reach. es2 11:09 Patient did not have IV access during this emergency room visit. es2 11:10 No provider procedures requiring assistance completed. es2 Administered Medications: No medications were administered Outcome: 10:49 Discharge ordered by . [facility] 11:09 Discharged to home with walker es2 11:09 Condition: stable 11:09 Discharge instructions given to patient, Instructed on discharge instructions, medication usage, Demonstrated understanding of instructions, medications, Prescriptions given X 1. 11:10 Patient left the ED. es2 Signatures: Jorge Shannon PA PA jmm Garcia, Rubi rg4 Cait Mendes RN RN vg1 Maegan Curran, WOLF RN es2
--- NOTE | 2020-11-27 10:50 | EDPHYS ---
Physician Documentation [facility] Name: Juaquin Steele Age: 60 yrs Sex: Male : 1960 Arrival Date: 11/27/2020 Time: 10:14 Bed 17 Private MD: ANGELITO Physician Praneeth Plata HPI: 11/27 10:47 This 60 yrs old Male presents to ER via Ambulatory with complaints of High [facility] Blood Pressure. 10:47 Is a 60-year-old male with a history of alcoholism and hypertension the presents [facility] emerged department with request for medication refill. Patient states he takes metoprolol 50 mg twice daily. Patient denies headache, chest pain, shortness of breath.. Historical: - Allergies: 10:35 No Known Allergies; vg1 - Home Meds: 10:35 lisinopril 20 mg Oral tab 1 tab once daily [Active]; metoprolol tartrate 50 mg Oral tab vg1 1 tab 2 times per day [Active]; - PMHx: 10:35 Alcoholism; Hypertensive disorder; vg1 - PSHx: 10:35 back sx; vg1 - Immunization history:: Adult Immunizations up to date, Client reports receiving the 2nd dose of the Covid vaccine. - Social history:: Smoking status: Patient reports the use of cigarette tobacco products, denies chronic smoking, but will smoke occasionally. ROS: 10:47 Constitutional: Negative for fever, chills, and weight loss, Eyes: Negative for injury, jmm pain, redness, and discharge, ENT: Negative for injury, pain, and discharge, Neck: Negative for injury, pain, and swelling, Cardiovascular: Negative for chest pain, palpitations, and edema, Respiratory: Negative for shortness of breath, cough, wheezing, and pleuritic chest pain, Abdomen/GI: Negative for abdominal pain, nausea, vomiting, diarrhea, and constipation, Back: Negative for injury and pain, Skin: Negative for injury, rash, and discoloration, Neuro: Negative for headache, weakness, numbness, tingling, and seizure, Psych: Negative for depression, anxiety, suicide ideation, homicidal ideation, and hallucinations, Allergy/Immunology: Negative for hives, rash, and allergies. 10:47 All other systems are negative. Exam: 10:47 Constitutional: This is a well developed, well nourished patient who is awake, alert, jmm and in no acute distress. Head/Face: atraumatic. Eyes: EOMI, no conjunctival erythema appreciated ENT: Moist Mucus Membranes Neck: Trachea midline, Supple Chest/axilla: Normal chest wall appearance and motion. 10:47 Respiratory: Normal respirations, no respiratory distress appreciated Abdomen/GI: Non distended, soft Back: Normal ROM Skin: General appearance color normal MS/ Extremity: Moves all extremities, no obvious deformities appreciated, no edema noted to the lower extremities Neuro: Awake and alert, normal gait Psych: Behavior is normal, Mood is normal, Patient is cooperative and pleasant 10:47 Cardiovascular: Rate: tachycardic. Vital Signs: 10:32 BP 135 / 92; Pulse 120; Resp 18; Temp 97.5; Pulse Ox 100% ; Weight 108.86 kg; Height 6 vg1 ft. 0 in. (182.88 cm); Pain 0/10; 10:32 Body Mass Index 32.55 (108.86 kg, 182.88 cm) vg1 MDM: 10:48 Data reviewed: vital signs, nurses notes. Counseling: I had a detailed discussion with leonela the patient and/or guardian regarding: the historical points, exam findings, and any diagnostic results supporting the discharge/admit diagnosis, the need for outpatient follow up, to return to the emergency department if symptoms worsen or persist or if there are any questions or concerns that arise at home. ED course: Patient is alert nontoxic in appearance in the ED. Has no complaints. Just has a request for metoprolol. We will refill the prescription and patient is otherwise given strict return precautions. Patient understood and agrees plan of care.. 10:49 Patient medically screened. [facility] Administered Medications: No medications were administered Disposition: 11:14 Co-signature as Attending Physician, Praneeth Plata MD I agree with the assessment and rn plan of care. Attestation: The patient's history, exam findings, diagnostics, and a summary of any interventions or procedures was reviewed in detail with Jorge KAYE. Disposition Summary: 11/27/20 10:49 Discharge Ordered Location: Home [facility] Condition: Stable jm Diagnosis - Medication Refill [facility] Followup: [facility] - With: Private Physician - When: 2 - 3 days - Reason: Recheck today's complaints, Continuance of care, Re-evaluation by your physician Discharge Instructions: - Discharge Summary Sheet [facility] Forms: - Medication Reconciliation Form [facility] - Thank You Letter fletcher - Antibiotic Education leonela - Prescription Opioid Use [facility] Prescriptions: - Metoprolol Tartrate 50 mg Oral Tablet - take 1 tablet by ORAL route 2 times per day take with meal; 60 tablet; Refills: [facility] 0, Product Selection Permitted Signatures: Jorge Shannon PA PA jmm Nieto, Roman, MD MD rn Cait Mendes RN RN vg1
[2020-11-27 11:23] VITALS: BP 135/92; TEMP 97.5; O2SAT 100
== END 2020-11-27 11:10 | disposition home or self-care (01) ==
LOC: ER 10:13
DX: Z76.0 Encounter for issue of repeat prescription (principal)
CPT/HCPCS: 99282

== ENCOUNTER 2020-12-01 09:49 | Emergency (ER) | payer OTHER ==
[2020-12-01] MEDS ORDERED: NA CHLORIDE 0.9% 1,000 ML ONE (10:40)
[2020-12-01] MEDS ORDERED: DIAZEPAM 10 MG/2 ML INJ SYRINGE ONE (10:40)
[2020-12-01 10:42] LABS: Absolute Lymphocytes (CBC) 1.9 K/uL (0.7-4.9); Basophils % 0.2 % (0-1.3); Lymphocytes % 30.3 % (15.3-44.8); MPV 7.2 fL (7.6-11.3); RBC Red Blood Cell Count 3.75 M/uL (4.33-5.43)
[2020-12-01 11:21] LABS: BUN Blood Urea Nitrogen 10 mg/dL (7-18); Bicarbonate 28 mmol/L (21-32); Glucose Level 99 mg/dL (74-106); Potassium 3.2 mmol/L (3.5-5.1); Sodium Level 135 mmol/L (136-145)
[2020-12-01 11:26] LABS: Magnesium 1.1 mg/dL (1.8-2.4)
[2020-12-01] MEDS ORDERED: MAGNESIUM SULFATE 1 gm IVPB 1 GM/100 ML BAG IV ONE ×2 (12:00→12:24)
[2020-12-01] MEDS ORDERED: POTASSIUM CL 10 MEQ in NA CHLORIDE 0.9% 100 ML IV ONE (12:00)
--- NOTE | 2020-12-01 12:21 | ER ---
Nurse's Notes [facility] Name: Juaquin Steele Age: 60 yrs Sex: Male : 1960 Arrival Date: 12/01/2020 Time: 09:50 Bed 5 Private MD: Diagnosis: Alcohol dependence with withdrawal, uncomplicated-Mild;Essential (primary) hypertension Presentation: 12/01 09:56 Chief complaint: Pt was checking in for alcohol detox at [facility], was sent for BP hb 200/110. Usually drinks a 12 pack of beer, last drink was today at 0100. Coronavirus screen: At this time, the client does not indicate any symptoms associated with coronavirus-19. Ebola Screen: No symptoms or risks identified at this time. Risk Assessment: Do you want to hurt yourself or someone else? Patient reports no desire to harm self or others. Onset of symptoms was December 01, 2020. 09:56 Method Of Arrival: Ambulatory hb 09:56 Acuity: PANDA 3 hb 10:12 Initial Sepsis Screen: Does the patient meet any 2 criteria? No. Patient's initial ap3 sepsis screen is negative. Does the patient have a suspected source of infection? No. Patient's initial sepsis screen is negative. Triage Assessment: 10:12 General: Behavior is calm, cooperative, appropriate for age. ap3 Historical: - Allergies: 09:59 No Known Allergies; hb - Home Meds: 09:59 lisinopril 20 mg Oral tab 1 tab once daily [Active]; metoprolol tartrate 50 mg Oral tab hb 1 tab 2 times per day [Active]; - PMHx: 09:59 Alcoholism; Hypertensive disorder; hb - PSHx: 09:59 back sx; hb - Immunization history:: Client reports receiving the 2nd dose of the Covid vaccine. - Social history:: Smoking status: Patient reports the use of cigarette tobacco products, denies chronic smoking, but will smoke occasionally, Patient uses alcohol, on a daily basis. 12 pack/day. - Family history:: not pertinent. - Hospitalizations: : No recent hospitalization is reported. Screenin:11 Abuse screen: Denies threats or abuse. Nutritional screening: No deficits noted. ap3 Tuberculosis screening: No symptoms or risk factors identified. Fall Risk No fall in past 12 months (0 pts). Secondary diagnosis (15 points) impaired mobility, IV access (20 points). Ambulatory Aid- Crutches/Cane/Walker (15 pts). Gait- Weak (10 pts.). Mental Status- Overestimates/Forgets Limitations (15 pts.). Total Muñoz Fall Scale indicates High Risk Score (45 or more points). Fall prevention measures have been instituted. Side Rails Up X 2 Placed Close to Nursing Station Frequent Obs/Assessments Occuring Family Present and informed to notify staff if the need to leave the bedside As available patient and family educated on Fall Prevention Program and Strategies. Assessment: 10:11 General: Appears in no apparent distress. comfortable. Pain: Denies pain. Neuro: Level ap3 of Consciousness is awake, alert, obeys commands, Oriented to person, place, time, situation, Appropriate for age Moves all extremities. Gait is unsteady, Speech is normal. Cardiovascular: Denies chest pain, shortness of breath, Capillary refill < 3 seconds Patient's skin is warm and dry. Respiratory: Airway is patent Respiratory effort is even, unlabored, Respiratory pattern is regular, symmetrical, Breath sounds are clear. GI: No signs and/or symptoms were reported involving the gastrointestinal system. : No signs and/or symptoms were reported regarding the genitourinary system. 13:05 Reassessment: Patient and/or family updated on plan of care and expected duration. Pain ap3 level reassessed. Patient is alert, oriented x 3, equal unlabored respirations, skin warm/dry/pink. 13:08 Reassessment: awaiting completion of medications prior to discharge. ap3 Vital Signs: 09:56 BP 164 / 92; Pulse 89; Resp 16; Temp 97; Pulse Ox 98% on R/A; Weight 108.86 kg; Height hb 6 ft. (182.88 cm); Pain 6/10; 11:07 BP 147 / 78; Pulse 67; Resp 18; Pulse Ox 100% on R/A; ap3 12:13 BP 174 / 92; Pulse 69; Resp 18; Pulse Ox 100% on R/A; ap3 13:13 BP 155 / 90; Pulse 78; Pulse Ox 100% on R/A; ap3 09:56 Body Mass Index 32.55 (108.86 kg, 182.88 cm) ED Course: 09:50 Patient arrived in ED. ds1 09:59 Triage completed. hb 09:59 Arm band placed on. hb 10:01 Patient placed in an exam room, on a stretcher. ll1 10:02 Praneeth Plata MD is Attending Physician. rn 10:12 Patient has correct armband on for positive identification. territory supervisor on. Pulse ap3 ox on. NIBP on. Door closed. Noise minimized. 10:12 Inserted saline lock: 20 gauge in right antecubital area, using aseptic technique. ap3 Blood collected. 10:21 Kellen Landis, RN is Primary Nurse. ap3 Administered Medications: 10:21 Drug: Valium (diazepam) 10 mg Route: IVP; Site: right antecubital; ap3 11:44 Follow up: Response: No adverse reaction ap3 10:21 Drug: NS 0.9% 1000 ml Route: IV; Rate: 1000 ml; Site: right antecubital; ap3 13:02 Follow up: IV Status: Completed infusion ap3 12:02 Drug: Magnesium Sulfate 1 grams Route: IVPB; Infused Over: 1 hrs; Site: right ap3 antecubital; 13:03 Follow up: IV Status: Completed infusion ap3 13:02 Drug: Potassium Chloride 10 mEq Route: IV; Rate: calculated rate; Site: right ap3 antecubital; 14:09 Follow up: IV Status: Completed infusion ch5 Outcome: 12:21 Discharge ordered by . rn 14:10 Discharged to home via wheelchair, with family. ch5 14:10 Condition: improved 14:10 Discharge instructions given to patient, family, Instructed on discharge instructions, follow up and referral plans. 14:11 Patient left the ED. ch5 Signatures: Ghislaine De Dios ds1 Praneeth Palta MD MD rn Baxter, Heather, RN RN Kellen Landis RN RN ap3 Nicole Gutiérrez RN RN 1 Jacob Boyd RN RN ch5
--- NOTE | 2020-12-01 12:21 | EDPHYS ---
Physician Documentation [facility] Name: Juaquin Steele Age: 60 yrs Sex: Male : 1960 Arrival Date: 12/01/2020 Time: 09:50 Bed 5 Private MD: ED Physician Praneeth Plata HPI: 12/01 10:12 This 60 yrs old Male presents to ER via Ambulatory with complaints of High rn Blood Pressure. 10:12 The patient has elevated blood pressure and discovered this Rehab facility. Onset: The rn symptoms/episode began/occurred at an unknown time. Modifying factors: The symptoms are alleviated by prescription meds. Associated signs and symptoms: Pertinent negatives: chest pain, headache, lightheadedness, vomiting, weakness. Severity of symptoms: At its worst the blood pressure was moderate, in the emergency department the blood pressure is improved. The patient has experienced similar episodes in the past. The patient has been recently seen by a physician:. Patient was trying to sign in for detox at detox facility today, upon intake was noted to have high blood pressure, systolic in the 200s. Patient feels well otherwise. Reports last drink last night. States also uses drugs and states who knows what drugs when he is drunk. Plans on quitting drinking. Denies any chest pain or focal neurological deficit. States only reason he is here is he was told to come to ER for high blood pressure.. Historical: - Allergies: : No Known Allergies; hb - Home Meds: :60 lisinopril 20 mg Oral tab 1 tab once daily [Active]; metoprolol tartrate 50 mg Oral tab hb 1 tab 2 times per day [Active]; - PMHx: 09:59 Alcoholism; Hypertensive disorder; hb - PSHx: :60 back sx; hb - Immunization history:: Client reports receiving the 2nd dose of the Covid vaccine. - Social history:: Smoking status: Patient reports the use of cigarette tobacco products, denies chronic smoking, but will smoke occasionally, Patient uses alcohol, on a daily basis. 12 pack/day. - Family history:: not pertinent. - Hospitalizations: : No recent hospitalization is reported. ROS: 10:12 Constitutional: Negative for fever, chills, and weight loss, Eyes: Negative for injury, rn pain, redness, and discharge, Neck: Negative for injury, pain, and swelling, Cardiovascular: Negative for chest pain, palpitations, and edema, Respiratory: Negative for shortness of breath, cough, wheezing, and pleuritic chest pain, Abdomen/GI: Negative for abdominal pain, nausea, vomiting, diarrhea, and constipation, Back: Negative for injury and pain, : Negative for injury, bleeding, discharge, and swelling, MS/Extremity: Negative for injury and deformity, Skin: Negative for injury, rash, and discoloration, Neuro: Negative for headache, weakness, numbness, tingling, and seizure. Exam: 10:12 Constitutional: This is a well developed, alert, and in no acute distress. Head/Face: rn Normocephalic, atraumatic. Eyes: Periorbital areas with no swelling, redness, or edema. ENT: Dry mucous membranes Cardiovascular: Regular rate and rhythm. No pulse deficits. Respiratory: Speaking full sentences, unlabored. No increased work of breathing, no retractions or nasal flaring. Abdomen/GI: Soft, non-tender Skin: Warm, dry MS/ Extremity: Pulses equal, no cyanosis. Neuro: Awake and alert, GCS 15, oriented to person, place, time, and situation. Cranial nerves II-XII grossly intact. Motor strength 5/5 in all extremities. Sensory grossly intact. Cerebellar exam normal. 11:11 ECG was reviewed by the Attending Physician. rn Vital Signs: 09:56 BP 164 / 92; Pulse 89; Resp 16; Temp 97; Pulse Ox 98% on R/A; Weight 108.86 kg; Height hb 6 ft. (182.88 cm); Pain 6/10; 11:07 BP 147 / 78; Pulse 67; Resp 18; Pulse Ox 100% on R/A; ap3 12:13 BP 174 / 92; Pulse 69; Resp 18; Pulse Ox 100% on R/A; ap3 13:13 BP 155 / 90; Pulse 78; Pulse Ox 100% on R/A; ap3 09:56 Body Mass Index 32.55 (108.86 kg, 182.88 cm) hb MDM: 10:02 Patient medically screened. rn 12:19 Differential diagnosis: hypertensive crisis, Malignant HTN, alcohol withdrawal, technical support internship non-compliance, electrolyte abnormality. Data reviewed: vital signs, nurses notes, lab test result(s), EKG, and as a result, I will discharge patient. Data interpreted: nurse monitoring: rate is 69 beats/min, rhythm is normal sinus rhythm, regular, with no ectopy, Interpretation: normal rate, normal rhythm, Pulse oximetry: on room air is 100 %. Interpretation: normal. Counseling: I had a detailed discussion with the patient and/or guardian regarding: the historical points, exam findings, and any diagnostic results supporting the discharge/admit diagnosis, the presence of at least one elevated blood pressure reading (>120/80) during this emergency department visit, lab results, the need for outpatient follow up, to return to the emergency department if symptoms worsen or persist or if there are any questions or concerns that arise at home. Response to treatment: the patient's symptoms have markedly improved after treatment, and as a result, I will discharge patient. Special discussion: I discussed with the patient/guardian in detail that at this point there is no indication for admission to the hospital. It is understood, however, that if the symptoms persist or worsen the patient needs to return immediately for re-evaluation. Based on the history and exam findings, there is no indication for further emergent testing or inpatient evaluation. I discussed with the patient/guardian the need to see the primary care provider for further evaluation of the symptoms. Detox facility. ED course: Patient improved, blood pressure improved after taking her home medications, fluids, Valium. Patient with a touch of alcohol withdrawal given last drink last night but not delirium tremens or seizure activity. Not severe enough to be put in the hospital. Will DC home with instructions to sign into a detox facility. Return precautions given and understood.. 12/01 10:12 Order name: CBC with Diff; Complete Time: rn 12/01 10:12 Order name: Basic Metabolic Panel; Complete Time: rn 12/01 10:12 Order name: Magnesium; Complete Time: rn 12/01 10:12 Order name: IV Start; Complete Time: rn 12/01 10:12 Order name: EKG; Complete Time: rn 12/01 10:12 Order name: EKG - Nurse/Tech; Complete Time: 10: rn EC: Rate is 87 beats/min. Rhythm is regular. QRS [place] is Normal. [place] interval is normal. QRS rn interval is normal. QT interval is normal. No Q waves. T waves are Normal. No ST changes noted. Clinical impression: Normal ECG. Interpreted by me. Reviewed by me. Administered Medications: 10:21 Drug: Valium (diazepam) 10 mg Route: IVP; Site: right antecubital; ap3 11:44 Follow up: Response: No adverse reaction ap3 10:21 Drug: NS 0.9% 1000 ml Route: IV; Rate: 1000 ml; Site: right antecubital; ap3 13:02 Follow up: IV Status: Completed infusion ap3 12:02 Drug: Magnesium Sulfate 1 grams Route: IVPB; Infused Over: 1 hrs; Site: right ap3 antecubital; 13:03 Follow up: IV Status: Completed infusion ap3 13:02 Drug: Potassium Chloride 10 mEq Route: IV; Rate: calculated rate; Site: right ap3 antecubital; 14:09 Follow up: IV Status: Completed infusion ch5 Disposition Summary: 12/01/20 12:21 Discharge Ordered Location: Home rn Problem: an ongoing problem rn Symptoms: have improved rn Condition: Stable rn Diagnosis - Alcohol dependence with withdrawal, uncomplicated - Mild rn - Essential (primary) hypertension rn Followup: rn - With: Private Physician - When: Upon discharge from the Emergency Department - Reason: Recheck today's complaints, Re-evaluation by your physician Discharge Instructions: - Discharge Summary Sheet rn - Hypertension, Adult rn - Alcohol Withdrawal Syndrome, [id number] rn - Managing Your Hypertension rn Forms: - Medication Reconciliation Form rn - Thank You Letter rn - Antibiotic garnett feeder - Prescription Opioid Use rn Signatures: Dispatcher [employer] EDPraneeth Baugh MD MD rn Baxter, Heather RN Kellen Chaparro RN RN [facility] Jacob Boyd RN 5
[2020-12-01 14:18] VITALS: TEMP 97
[2020-12-01 14:19] VITALS: O2SAT 100
[2020-12-01 14:22] VITALS: BP 155/90
--- NOTE | 2020-12-02 18:12 | EKG ---
Test Date: 2020-12-01 Test Time: 10:29:31 Financial Services Sales Representative: GIULIANO MEASUREMENT RESULTS: Intervals: Rate: 87 MT: 200 QRSD: 90 QT: 382 QTc: 459 S[place]ello: P: 26 MT: 200 QRS: 38 T: 48 INTERPRETIVE STATEMENTS: Normal sinus rhythm Normal ECG Compared to ECG 09/08/2020 10:00:16 T-wave abnormality no longer present Electronically Signed On 12-02-20 18:06:13 CDT by Rey Vazquez
== END 2020-12-01 14:11 | disposition home or self-care (01) ==
LOC: ER 09:49
DX: I10 Essential (primary) hypertension (principal); F10.239 Alcohol dependence with withdrawal, unspecified; F17.210 Nicotine dependence, cigarettes, uncomplicated
CPT/HCPCS: 96365; 96361; 93005; 85025; 80048; 36415; 83735; 96375; 99284; J3480; J3360; J3475; J7030

== ENCOUNTER 2021-07-23 11:53 | Emergency (ER) | payer OTHER ==
--- OUTSIDE RECORDS SUMMARY | 2021-07-23 11:55 | XMS REPORT | Continuity of Care Document ---
:1960 Author Organization [facility] t Address [address] [place] [address] Care Team Providers Name Role Phone Ananda Moore Attending Clinician Unavailable Maile Attending Clinician Unavailable Tennille Attending Clinician Unavailable CHAVA Attending Clinician Unavailable WALTER Attending Clinician Unavailable YOLI Attending Clinician Unavailable MUHSTAQ Attending Clinician Unavailable AZRA Attending Clinician Unavailable RENE Attending Clinician Unavailable MD Mi LANDIN Attending Clinician Unavailable MD ROHIT WATSON Attending Clinician Unavailable MUSHTAQ Admitting Clinician Unavailable MD Mi LANDIN Admitting Clinician Unavailable RENE Admitting Clinician Unavailable MD ROHIT WATSON Admitting Clinician Unavailable Payers Payer Name Policy Type Policy Number Effective Date Expiration Date S [facility] [id number] 2020 (MEDICARE 00:00:00 REPLACEMENT HMO) MEDICARE PART A \T\ [id number] B 00:00:00 Problems Condition Condition Condition Status Onset Resolution Last Treating Co mments Source Name Details Category Date Date Treatment Clinician Date Obesity Obesity Disease Active Univers (BMI (BMI 4-25 ity of 30-39.9) 30-39.9) 00:00: [address] Tongue Tongue Disease Active 2012-02 Univers swelling swelling 2-10 ity of 00:00: [address] Allergies, Adverse Reactions, Alerts Allergy Allergy Status Severity Reaction(s) Onset Inactive Treating Comm ents Source Name Type Date Date Clinician NO KNOWN Drug Active Univers ALLERGIE Class ity of [facility] [place] [facility] Social History Social Habit Start Date Stop Date Quantity Comments Source Sex Assigned At Uni versity [facility] Exposure to SARS-CoV-2 Not sure Un iversity [facility] (event) [facility] Smoking Status Start Date Stop Date Source Unknown if ever smoked Universit y [facility] Medications Ordered Filled Start Stop Current Ordering Indication Dosage Frequency Signature Comments Components Source Medication Medication Date Date Medication? Clinician (SIG) Name Name Gabapentin Gabapentin Yes Jody 1 capsule Common 2-05 Mill[place] (take with Spir it 00:00: gabapentin - CHI 00 800 mg) [facility] metoprolol Yes 100mg Take 100 Un jocelyn succinate 8-26 mg by ity of XL (TOP[place]OL 16:24: mouth 2 [place] 100 mg 33 (two) Medical 24 hr times Branch tablet daily. metoprolol Yes 100mg Take 1 Tab Univers tartrate 8-26 by mouth 2 ity o f (LOPRESSOR) 00:00: (two) [place] 100 mg 00 times Medical tablet daily. Branch IBU IBU Yes Jody TAKE 1 Common [place] TABLET BY Spiri t MOUTH 3 - [facility] TIMES A [facility] DAY ([facility]) Medical NEEDED FOR Center PAIN Gabapentin Gabapentin Yes Jody 1 tablet Common Millender (take with Spir it gabapentin - CHI 100 mg) [facility] Lisinopril Lisinopril Yes Jody 1 tablet Common Millender [facility] Metoprolol Metoprolol Yes Jody 1 capsule Common Succinate Succinate Millender [facility] atorvastati atorvastati 2020- No Jody 1 tablet Common n n 11-01 Millender in evening Spi rit 00:00 - CHI :00 [facility] Procedures This patient has no known procedures. Encounters Start End Encounter Admission Attending Care Care Encounter Source Date/Time Date/Time Type Type Clinicians Facility Department ID 2021-03-25 Outpatient Moore, [facility] [id number] Common 13:45:08 Diego [address] [facility] 2021-03-25 Outpatient [place], [facility] [id number] Common 12:08:19 Misty [address]13 [facility] 2021-03-25 Outpatient Millender, [facility] [id number] 11:36:34 Jody [id number] [facility] 2021-03-25 Outpatient Millender, STLMLC ST[facility] [id number] Common 11:05:32 Jody [id number] [facility] 2020-11-10 2020-11-10 Emergency E CHAVA, KM [facility] 7500 [facility] 12:08:00 19:28:00 KAILEY Perry [facility] 2020-10-14 2020-10-14 Outpatient [facility]ML[facility] [id number] Common 00:00:00 00:00:00 [facility] 2020-07-25 2020-07-25 [place] [id number] [place] [address] 08:00:00 08:00:00 0528 [facility] 2020-07-02 2020-07-02 Outpatient Ananda WATSON [facility] [id number] [place] 00:00:00 00:00:[address] 2020-04-21 2020-04-21 Outpatient Ananda WATSON [facility] [id number] [place] 00:00:00 00:00:[address] 2020-04-21 2020-04-21 Outpatient YOLI, [facility] [id number] [place] 00:00:00 00:00:00 INDU [address] 2020-04-18 2020-04-18 Outpatient Ananda WATSON [facility] [id number] [place] 00:00:00 00:00:[address] 2020-04-04 2020-04-04 Outpatient Ananda WATSON [facility] [id number] [place] 00:00:00 00:00:[address] 2020-04-04 2020-04-04 Outpatient YOLI, [facility] [id number] [place] 00:00:00 00:00:00 INDU [address] 2020-04-04 2020-04-04 Outpatient Ananda WATSON [facility] [id number] [place] 00:00:00 00:00:[address] 2020-04-03 2020-04-03 Outpatient MUSHTAQ, [facility] [id number] [place] 00:00:00 00:00:00 BENNETT [address] 2020-04-02 2020-04-02 Outpatient AHUERO, [facility] [id number] [place] 00:00:00 00:00:00 EDELMIRA [address] 2020-03-21 2020-03-21 Outpatient WEINER, [facility] [id number] [place] 00:00:00 00:00:00 BENNETT [address] 2020-03-11 2020-03-19 Outpatient SCHURMANN, [facility] [id number] [place] 00:00:00 00:00:00 IRAM [address] 2020-03-18 2020-03-18 Outpatient WEINER, [facility] [id number] [place] 00:00:00 00:00:00 BENNETT [address] 2020-03-11 2020-03-11 Outpatient NANCIER, [facility] [id number] [place] 00:00:00 00:00:00 BENNETT [address] 2020-03-07 2020-03-07 Outpatient Ananda WATSON [facility] [id number] [place] 00:00:00 00:00:[address] 2020-03-03 2020-03-03 Outpatient Ananda WATSON [facility] [id number] [place] 00:00:00 00:00:[address] 2020-02-12 2020-02-12 Outpatient YOLI, [facility] [id number] [place] 00:00:00 00:00:00 INDU [address] 2020-02-08 2020-02-08 Outpatient LUIS FERNANDONEY, [facility] [id number] [place] 00:00:00 00:00:00 INDU [address] 2020-02-05 2020-02-06 Outpatient SCHNITHINMANN, [facility] [id number] [place] 00:00:00 00:00:00 IRAM [address] 2020-02-01 2020-02-01 Outpatient YOLI, [facility] [id number] [place] 00:00:00 00:00:00 INDU [address] 2020-02-01 2020-02-01 Outpatient Ananda WATSON [facility] [id number] [place] 00:00:00 00:00:00 144 [facility] i 2020-01-10 2020-01-10 Outpatient YOLI, [facility] [id number] [place] 00:00:00 00:00:00 INDU 992 Method i 2020-01-08 2020-01-08 Outpatient MUSHTAQ, [facility] [id number] [place] 00:00:00 00:00:00 BENNETT 187 Method i 2020-01-02 2020-01-02 Outpatient MUSHTAQ, [facility] [id number] [place] 00:00:00 00:00:00 BENNETT 551 Method i 2020-01-02 2020-01-02 Outpatient MUSHTAQ, [facility] [id number] [place] 00:00:00 00:00:00 BENNETT 874 Method i 2020-01-02 2020-01-02 Outpatient MUSHTAQ, [facility] [id number] [place] 00:00:00 00:00:00 BENNETT 014 Method i 2019-12-11 2019-12-11 Outpatient MUSHTAQ, [facility] [id number] [place] 00:00:00 00:00:00 BENNETT 697 [facility] i 2019-09-25 2019-09-25 Outpatient [facility] [id number] Common 14:24:00 14:24:00 [facility] 2019-09-14 2019-09-14 Outpatient [facility] [id number] Common 16:40:00 16:40:[address] [facility] 2019-07-05 2019-07-05 Outpatient [facility] [id number] Common 09:40:00 09:40:00 [facility] [address] [facility] 2019-06-30 2019-06-30 Emergency [facility] [id number] 10:46:40 11:09:00 [place] [id number] [place] [id number] [place] [id number] 2019-06-30 2019-06-30 Emergency [facility] [id number] [facility] 10:46:40 11:09:00 [place] [id number] i [place] [id number] [facility] [id number] [place] [id number] [place] 2019-06-30 2019-06-30 Emergency X [facility] ERT [id number] Univers 10:46:40 10:46:40 ity of [facility] 2019-05-24 2019-05-24 Outpatient [facility] [id number] Common 14:19:00 14:19:[address] [facility] 2019-05-21 2019-05-21 Outpatient [facility] [id number] Common 16:33:00 16:33:[address] [facility] 2019-04-03 2019-04-03 Outpatient [facility] [id number] Common 15:15:00 15:15:[address] [facility] Results Test Description Test Time Test Comments Results Result Comments Source SARS-CoV-2 (COVID-19) RNA [Presence] in Respiratory sp ecimen by 2020-03-19 01:29:19 EMERSON with probe detection Test Item Value Reference Range Interpretation Comme nts SARS-CoV-2 (COVID-19) RNA [Presence] in Respiratory Not detected No t-Detected specimen by EMERSON with probe detection (test code = 20088-9) SARS-CoV-2 (COVID-19) RNA [Presence] in Respiratory specimen by EMERSON with probe [id number] 22:23:20 Test Item Value Reference Range Interpretation Comments SARS-CoV-2 (COVID-19) RNA Not detected Not-Detected [Presence] in Respiratory specimen by EMERSON with probe detection (test code = 25485-4) SARS-CoV-2 (COVID-19) RNA [Presence] in Respiratory specimen by EMERSON with probe [id number] 21:50:07 Test Item Value Reference Range Interpretation Comments SARS-CoV-2 (COVID-19) RNA Not detected Not-Detected [Presence] in Respiratory specimen by EMERSON with probe detection (test code = 76937-6)
--- NOTE | 2021-07-23 12:58 | EDPHYS ---
Physician Documentation [facility] Name: Juaquin Steele Age: 61 yrs Sex: Male : 1960 Arrival Date: 07/23/2021 Time: 11:54 Bed 19 Private MD: ED Physician Lokesh Elliott HPI: 07/23 12:53 This 61 yrs old Male presents to ER via Wheelchair with complaints of High darrel Blood Pressure. 12:53 The patient has elevated blood pressure and discovered this longterm. Onset: The darrel symptoms/episode began/occurred 3 day(s) ago. Modifying factors: The symptoms are aggravated by activity, The symptoms are alleviated by remaining still. Associated signs and symptoms: The patient has no apparent associated signs or symptoms. Severity of symptoms: At its worst the blood pressure was moderate, in the emergency department the blood pressure is unchanged. The patient has not experienced similar symptoms in the past. Historical: - Allergies: 12:23 No Known Allergies; iw - Home Meds: 12:23 metoprolol tartrate 50 mg Oral tab 1 tab 2 times per day [Active]; lisinopril 20 mg iw Oral tab 1 tab twice a day [Active]; - PMHx: 12:23 Hypertensive disorder; Alcoholism; iw - PSHx: 12:23 back sx; iw - Immunization history:: Adult Immunizations up to date. - Social history:: Smoking status: Patient reports the use of cigarette tobacco products, smokes one-half pack cigarettes per day. ROS: 12:54 Constitutional: Negative for fever, chills, and weight loss, Eyes: Negative for injury, darrel pain, redness, and discharge, ENT: Negative for injury, pain, and discharge, Neck: Negative for injury, pain, and swelling, Cardiovascular: Negative for chest pain, palpitations, and edema, Respiratory: Negative for shortness of breath, cough, wheezing, and pleuritic chest pain, Abdomen/GI: Negative for abdominal pain, nausea, vomiting, diarrhea, and constipation, Back: Negative for injury and pain, : Negative for injury, bleeding, discharge, and swelling, MS/Extremity: Negative for injury and deformity, Skin: Negative for injury, rash, and discoloration, Neuro: Negative for headache, weakness, numbness, tingling, and seizure, Psych: Negative for depression, anxiety, suicide ideation, homicidal ideation, and hallucinations, Allergy/Immunology: Negative for hives, rash, and allergies, Endocrine: Negative for neck swelling, polydipsia, polyuria, polyphagia, and marked weight changes, Hematologic/Lymphatic: Negative for swollen nodes, abnormal bleeding, and unusual bruising. Exam: 12:54 Constitutional: This is a well developed, well nourished patient who is awake, alert, darrel and in no acute distress. Head/Face: Normocephalic, atraumatic. Eyes: Pupils equal round and reactive to light, extra-ocular motions intact. Lids and lashes normal. Conjunctiva and sclera are non-icteric and not injected. Cornea within normal limits. Periorbital areas with no swelling, redness, or edema. ENT: Nares patent. No nasal discharge, no septal abnormalities noted. Tympanic membranes are normal and external auditory canals are clear. Oropharynx with no redness, swelling, or masses, exudates, or evidence of obstruction, uvula midline. Mucous membranes moist. Neck: Trachea midline, no thyromegaly or masses palpated, and no cervical lymphadenopathy. Supple, full range of motion without nuchal rigidity, or vertebral point tenderness. No Meningismus. Chest/axilla: Normal chest wall appearance and motion. Nontender with no deformity. No lesions are appreciated. Cardiovascular: Regular rate and rhythm with a normal S1 and S2. No gallops, murmurs, or rubs. Normal PMI, no JVD. No pulse deficits. Respiratory: Lungs have equal breath sounds bilaterally, clear to auscultation and percussion. No rales, rhonchi or wheezes noted. No increased work of breathing, no retractions or nasal flaring. Abdomen/GI: Soft, non-tender, with normal bowel sounds. No distension or tympany. No guarding or rebound. No evidence of tenderness throughout. Back: No spinal tenderness. No costovertebral tenderness. Full range of motion. Male : Normal genitalia with no discharge or lesions. Skin: Warm, dry with normal turgor. Normal color with no rashes, no lesions, and no evidence of cellulitis. MS/ Extremity: Pulses equal, no cyanosis. Neurovascular intact. Full, normal range of motion. Neuro: Awake and alert, GCS 15, oriented to person, place, time, and situation. Cranial nerves II-XII grossly intact. Motor strength 5/5 in all extremities. Sensory grossly intact. Cerebellar exam normal. Normal gait. Psych: Awake, alert, with orientation to person, place and time. Behavior, mood, and affect are within normal limits. Vital Signs: 12:24 BP 158 / 64; Pulse 58; Resp 16; Temp 98.1; Pulse Ox 100% on R/A; iw 13:08 BP 150 / 68; Pulse 60; Resp 16; Pulse Ox 99% ; ll1 MDM: 12:33 Patient medically screened. darrel 12:55 Differential diagnosis: hypertensive crisis, Malignant HTN. Data reviewed: vital signs, darrel nurses notes. Data interpreted: ekg monitor: rate is 58 beats/min, rhythm is normal sinus rhythm, Pulse oximetry: on room air 100 % NRB. Test interpretation: by ED physician or midlevel provider:. Counseling: I had a detailed discussion with the patient and/or guardian regarding: the historical points, exam findings, and any diagnostic results supporting the discharge/admit diagnosis, the need for outpatient follow up, for definitive care, a health and safety director, a family practitioner. Administered Medications: No medications were administered Disposition Summary: 07/23/21 12:58 Discharge Ordered Location: Home darrel Problem: new darrel Symptoms: have improved darrel Condition: Stable darrel Diagnosis - Essential (primary) hypertension darrel - Anxiety disorder, unspecified darrel Followup: darrel - With: Diego Moore DO - When: 2 - 3 days - Reason: Recheck today's complaints, Continuance of care, Re-evaluation by your physician Discharge Instructions: - Discharge Summary Sheet darrel - Hypertension, Adult darrel - Hypertension, Adult, [id number] darrel - Managing Your Hypertension darrel - Aspirin and Your Heart darrel Forms: - Medication Reconciliation Form darrel - Thank You Letter darrel - Antibiotic Education darrel - Prescription Opioid Use darrel Prescriptions: - Hydroxyzine HCl 25 mg Oral Tablet - take 1 tablet by ORAL route every 6 hours As needed; 30 tablet; Refills: 0, darrel Product Selection Permitted - Lopressor 50 mg Oral Tablet - take 1 tablet by ORAL route every 12 hours; 60 tablet; Refills: 0, Product darrel Selection Permitted - Lisinopril 20 mg Oral Tablet - take 1 tablet by ORAL route once daily; 30 tablet; Refills: 0, Product darrel Selection Permitted Signatures: Lokesh Elliott MD MD cha Williams, Irene, RN RN iw Nicole Gutiérrez, RN RN ll1
--- NOTE | 2021-07-23 12:58 | ER ---
Nurse's Notes [facility] Name: Juaquin Steele Age: 61 yrs Sex: Male : 1960 Arrival Date: 07/23/2021 Time: 11:54 Bed 19 Private MD: Diagnosis: Essential (primary) hypertension;Anxiety disorder, unspecified Presentation: 07/23 12:22 Chief complaint: Patient states: is trying to get into [facility] and they told iw him his BP was too high, was over 200 systolic. Coronavirus screen: At this time, the client does not indicate any symptoms associated with coronavirus-19. Ebola Screen: Patient negative for fever greater than or equal to 101.5 degrees Fahrenheit, and additional compatible Ebola Virus Disease symptoms Patient denies exposure to infectious person. Patient denies travel to an Ebola-affected area in the 21 days before illness onset. No symptoms or risks identified at this time. Onset of symptoms was July 23, 2021. 12:22 Method Of Arrival: Wheelchair iw 12:22 Acuity: PANDA 3 iw 13:09 Initial Sepsis Screen: Does the patient meet any 2 criteria? No. Patient's initial ll1 sepsis screen is negative. Does the patient have a suspected source of infection? No. Patient's initial sepsis screen is negative. Risk Assessment: Do you want to hurt yourself or someone else? Patient reports no desire to harm self or others. Historical: - Allergies: 12:23 No Known Allergies; iw - Home Meds: 12:23 metoprolol tartrate 50 mg Oral tab 1 tab 2 times per day [Active]; lisinopril 20 mg iw Oral tab 1 tab twice a day [Active]; - PMHx: 12:23 Hypertensive disorder; Alcoholism; iw - PSHx: 12:23 back sx; iw - Immunization history:: Adult Immunizations up to date. - Social history:: Smoking status: Patient reports the use of cigarette tobacco products, smokes one-half pack cigarettes per day. Screenin:35 Abuse screen: Denies threats or abuse. Nutritional screening: No deficits noted. ll1 Tuberculosis screening: No symptoms or risk factors identified. Fall Risk IV access (20 points). Ambulatory Aid- Crutches/Cane/Walker (15 pts). Gait- Impaired (20 pts.). Total Muñoz Fall Scale indicates High Risk Score (45 or more points). Fall prevention measures have been instituted. Side Rails Up X 2 Placed Close to Nursing Station Frequent Obs/Assessments Occuring Family Present and informed to notify staff if the need to leave the bedside As available patient and family educated on Fall Prevention Program and Strategies. Assessment: 12:34 General: Appears in no apparent distress. Behavior is calm, cooperative, appropriate ll1 for age. Pain: Denies pain. Neuro: Level of Consciousness is awake, alert, obeys commands, Oriented to person, place, time, situation, Appropriate for age Moves all extremities. Full function Gait is unsteady, Speech is normal, Facial symmetry appears normal, Reports high BP. . 13:08 Reassessment: No changes from previously documented assessment. Patient and/or family ll1 updated on plan of care and expected duration. Pain level reassessed. Patient is alert, oriented x 3, equal unlabored respirations, skin warm/dry/pink. Vital Signs: 12:24 BP 158 / 64; Pulse 58; Resp 16; Temp 98.1; Pulse Ox 100% on R/A; iw 13:08 BP 150 / 68; Pulse 60; Resp 16; Pulse Ox 99% ; ll1 ED Course: 11:54 Patient arrived in ED. mr 12:23 Triage completed. iw 12:24 Arm band placed on. iw 12:31 Patient placed in an exam room, on a stretcher. iw 12:33 Lokesh Elliott MD is Attending Physician. darrel 12:34 Nicole Gutiérrez, WOLF is Primary Nurse. ll1 12:36 Patient has correct armband on for positive identification. Bed in low position. Call ll1 light in reach. Side rails up X 1. Client placed on continuous cardiac and pulse oximetry monitoring. NIBP monitoring applied. 12:57 Diego Moore DO is Referral Physician. darrel 13:08 No provider procedures requiring assistance completed. Patient did not have IV access ll1 during this emergency room visit. Administered Medications: No medications were administered Medication: 12:36 VIS not applicable for this client. ll1 Outcome: 12:58 Discharge ordered by . darrel 13:09 Discharged to home via wheelchair. ll1 13:09 Condition: stable 13:09 Discharge instructions given to patient, family, Instructed on discharge instructions, follow up and referral plans. medication usage, Demonstrated understanding of instructions, follow-up care, medications, Prescriptions given X 3. 13:09 Patient left the ED. ll1 Signatures: Lokesh Elliott MD MD cha Rivera, Mary mr Williams, Irene, RN RN iw Lewis, Lynsay, RN RN ll1
[2021-07-23 13:21] VITALS: BP 150/68; O2SAT 99
[2021-07-23 13:23] VITALS: TEMP 98.1
== END 2021-07-23 13:09 | disposition home or self-care (01) ==
LOC: ER 11:53
DX: I10 Essential (primary) hypertension (principal); F41.9 Anxiety disorder, unspecified; F10.20 Alcohol dependence, uncomplicated; F17.210 Nicotine dependence, cigarettes, uncomplicated
CPT/HCPCS: 99282